=== PATIENT | male | born 1955 | race Caucasian/White ===

== ENCOUNTER 2018-05-20 18:02 | Emergency (ER) | payer OTHER ==
[~2018-05-20] VITALS: Ht 175.3 cm; Wt 79.5 kg
[2018-05-20 18:03] VITALS: BP 142/90
[2018-05-20] MEDS ORDERED: AZIT500T PO (18:40)
== END 2018-05-20 19:59 | disposition home or self-care (01) ==
LOC: ER 18:04
DX: J06.9 Acute upper respiratory infection, unspecified (principal); Z79.2 Long term (current) use of antibiotics
CPT/HCPCS: 87502; 87503; 99283